=== PATIENT | female | born 1980 | race Caucasian/White ===

== ENCOUNTER 2017-01-13 20:59 | Emergency (ER) | payer MEDICARE ==
[2017-04-18 11:46] VITALS: BMI 39.9
== END 2017-01-13 22:06 | disposition home or self-care (01) ==
LOC: D.ER 20:59
DX: Z86.59 Personal history of other mental and behavioral disorders (principal); F41.9 Anxiety disorder, unspecified; I10 Essential (primary) hypertension; G10 Huntington's disease

== ENCOUNTER → 2017-04-17 18:22 | Emergency (ER) | payer MEDICARE, MEDICAID ==
[~2017-04-17 18:22] MED LIST: BACLOFEN10 MG PO; BENZTROPINE MESY2 MG PO; CYMBALTA60 MG PO; HALDOL5 MG PO; INVEGA6 MG/BLIST PO; KLONOPIN0.5 MG PO; PROTONIX40 MG PO; TOPAMAX50 MG PO; TRAZODONE HCL150 MG PO; ULTRAM50 MG PO
[2017-04-17 20:13] LABS: APPEARANCE CLEAR (CLEAR); BILIRUBIN NEGATIVE (NEGATIVE); COLOR YELLOW (YELLOW); GLUCOSE NEGATIVE (NEGATIVE); KETONE NEGATIVE (NEGATIVE); NITRITE NEGATIVE (NEGATIVE); PROTEIN NEGATIVE (NEGATIVE); UROBILINOGEN NORMAL (NORMAL)
[2017-04-17 20:19] LABS: UDS - AMPHET NEGATIVE QUAL (NEGATIVE); UDS - BARB NEGATIVE QUAL (NEGATIVE); UDS - BENZO NEGATIVE QUAL (NEGATIVE); UDS - COCAINE NEGATIVE QUAL (NEGATIVE); UDS - OPIATE NEGATIVE QUAL (NEGATIVE); UDS - PCP NEGATIVE QUAL (NEGATIVE); UDS - THC NEGATIVE QUAL (NEGATIVE)
[2017-04-17 20:20] LABS: BASOPHILS 0.4 % (0-2); EOSINOPHILS 3.1 % (0-7); HEMATOCRIT 38.9 % (36.0-48.0); HEMOGLOBIN 12.7 g/dL (12-16); IMMATURE GRANULOCYTES 0.3 % (0-5); LYMPHOCYTES 40.6 % (15-50); MCH 29.2 pg (26.0-34.0); MCHC 32.6 g/dL (31.0-37.0); MCV 89.4 fL (80.0-100.0); MEAN PLATELET VOLUME 10.3 fL (7.4-10.4); MONOCYTES 9.8 % (2-11); NEUTROPHILS 45.8 % (40-80); PLATELET COUNT 288 10x3/uL (130-400); RBC 4.35 10x6/uL (4.00-5.40); RDW 14.3 % (11.5-14.5); WBC 7.1 10x3/uL (4.8-10.8)
[2017-04-17 20:43] LABS: ALBUMIN 3.7 g/dL (3.4-5.0); ALKALINE PHOSPHATASE 55 U/L (46-116); ALT (SGPT) 16 U/L (10-68); CALC OSMOLALITY 283 mosm/kg (275-300); CALCIUM 8.7 mg/dL (8.5-10.1); CARBON DIOXIDE 24.2 mmol/L (21.0-32.0); CHLORIDE - SERUM 108 mmol/L (98-107); CREATININE - SERUM 1.1 mg/dL (0.6-1.3); GLUCOSE 100 mg/dL (74-106); POTASSIUM - SERUM 3.4 mmol/L (3.5-5.1); PROTEIN - SERUM 7.2 g/dL (6.4-8.2); SODIUM 142 mmol/L (136-145); UREA NITROGEN 14 mg/dL (7-18); eGFR NON AFRICAN AMERICAN 59 mL/min (90-120)
[2017-04-17 20:48] LABS: CKMB 1.3 U/L (0.0-3.6); CREATINE KINASE 112 UL (21-215)
[2017-04-17 20:51] LABS: TROPONIN-I < 0.017 ng/mL (0.000-0.060)
[2017-04-18 11:46] VITALS: BMI 39.9
== END | disposition left against medical advice (07) ==
LOC: D.ER 18:22
PROVIDERS: Family Medicine
DX: R41.82 Altered mental status, unspecified (principal); I10 Essential (primary) hypertension; G10 Huntington's disease; Z86.59 Personal history of other mental and behavioral disorders

== ENCOUNTER 2017-04-17 18:35 | Observation (INO) | payer MEDICARE, MEDICAID ==
[~2017-04-17] VITALS: Ht 175.3 cm; Wt 122.7 kg
[2017-04-18] VITALS: BP 127/83
[2017-04-18 04:00] VITALS: BP 147/89
[2017-04-18 04:14] LABS: BASOPHILS 0.9 % (0-2); EOSINOPHILS 3.6 % (0-7); HEMATOCRIT 37.3 % (36.0-48.0); HEMOGLOBIN 11.9 g/dL (12-16); IMMATURE GRANULOCYTES 0.2 % (0-5); LYMPHOCYTES 46.3 % (15-50); MCH 28.7 pg (26.0-34.0); MCHC 31.9 g/dL (31.0-37.0); MCV 90.1 fL (80.0-100.0); MEAN PLATELET VOLUME 10.3 fL (7.4-10.4); MONOCYTES 11.3 % (2-11); NEUTROPHILS 37.7 % (40-80); PLATELET COUNT 275 10x3/uL (130-400); RBC 4.14 10x6/uL (4.00-5.40); RDW 14.3 % (11.5-14.5); WBC 6.5 10x3/uL (4.8-10.8)
[2017-04-18 04:26] LABS: CALC OSMOLALITY 286 mosm/kg (275-300); CALCIUM 8.5 mg/dL (8.5-10.1); CARBON DIOXIDE 25.1 mmol/L (21.0-32.0); CHLORIDE - SERUM 110 mmol/L (98-107); GLUCOSE 101 mg/dL (74-106); SODIUM 144 mmol/L (136-145); UREA NITROGEN 12 mg/dL (7-18)
[2017-04-18 04:33] LABS: CREATININE - SERUM 0.8 mg/dL (0.6-1.3); eGFR NON AFRICAN AMERICAN 85 mL/min (90-120)
[2017-04-18 04:54] VITALS: BP 147/89; BMI 39.9
[2017-04-18] MEDS ORDERED: INVEGA6 MG/BLIST PO (05:15)
[2017-04-18] MEDS ORDERED: TRAZODONE HCL150 MG PO (05:16)
[2017-04-18] MEDS ORDERED: BACLOFEN10 MG PO (05:16)
[2017-04-18] MEDS ORDERED: PROTONIX40 MG PO (05:17)
[2017-04-18] MEDS ORDERED: BENZTROPINE MESY2 MG PO (05:17)
[2017-04-18] MEDS ORDERED: HALDOL5 MG PO (05:17)
[2017-04-18] MEDS ORDERED: ULTRAM50 MG PO (05:18)
[2017-04-18] MEDS ORDERED: KLONOPIN0.5 MG PO (05:18)
[2017-04-18] MEDS ORDERED: TOPAMAX50 MG PO ×2 (05:19)
[2017-04-18] MEDS ORDERED: CYMBALTA60 MG PO ×2 (05:20→11:49)
[2017-04-18 08:06] VITALS: BP 122/79
[2017-04-18 11:46] VITALS: Ht 175.3 cm; Wt 122.7 kg
[2017-04-18 12:02] VITALS: BP 125/72
== END 2017-04-18 12:33 | disposition home or self-care (01) ==
LOC: D.ER 18:35 → D.MS 22:00 → OBSVTIME 04-18 04:00 → D.MS 04-18 12:33
PROVIDERS: Family Medicine
DX: R41.82 Altered mental status, unspecified (principal); F20.9 Schizophrenia, unspecified; F31.9 Bipolar disorder, unspecified; A41.9 Sepsis, unspecified organism; I10 Essential (primary) hypertension; J44.9 Chronic obstructive pulmonary disease, unspecified; J45.909 Unspecified asthma, uncomplicated; F17.200 Nicotine dependence, unspecified, uncomplicated

== ENCOUNTER 2017-07-12 20:32 | Emergency (ER) | payer MEDICARE, MEDICAID ==
[2017-04-18 11:46] VITALS: BMI 39.9
[2017-07-12 21:59] LABS: BASOPHILS 0.3 % (0-2); EOSINOPHILS 0.8 % (0-7); HEMATOCRIT 36.9 % (36.0-48.0); HEMOGLOBIN 12.5 g/dL (12-16); IMMATURE GRANULOCYTES 0.1 % (0-5); LYMPHOCYTES 33.5 % (15-50); MCH 29.3 pg (26.0-34.0); MCHC 33.9 g/dL (31.0-37.0); MCV 86.4 fL (80.0-100.0); MEAN PLATELET VOLUME 10.8 fL (7.4-10.4); MONOCYTES 7.9 % (2-11); NEUTROPHILS 57.4 % (40-80); PLATELET COUNT 246 10x3/uL (130-400); RBC 4.27 10x6/uL (4.00-5.40); RDW 16.3 % (11.5-14.5); WBC 9.7 10x3/uL (4.8-10.8)
[2017-07-12 22:12] LABS: ALBUMIN 3.6 g/dL (3.4-5.0); ANION GAP 16.6 mmol/L (8-16); BILIRUBIN - TOTAL 0.37 mg/dL (0.2-1.3); CALCIUM 8.6 mg/dL (8.5-10.1); CARBON DIOXIDE 19.4 mmol/L (21.0-32.0); CREATININE - SERUM 1.1 mg/dL (0.6-1.3); PROTEIN - SERUM 7.1 g/dL (6.4-8.2)
[2017-07-12 22:50] LABS: HCG URINE NEGATIVE (NEGATIVE)
[2017-07-12 23:00] LABS: UDS - AMPHET NEGATIVE QUAL (NEGATIVE); UDS - BARB NEGATIVE QUAL (NEGATIVE); UDS - BENZO NEGATIVE QUAL (NEGATIVE); UDS - COCAINE NEGATIVE QUAL (NEGATIVE); UDS - OPIATE NEGATIVE QUAL (NEGATIVE); UDS - PCP NEGATIVE QUAL (NEGATIVE); UDS - THC NEGATIVE QUAL (NEGATIVE)
[2017-07-12 23:01] LABS: APPEARANCE CLOUDY (CLEAR); BILIRUBIN NEGATIVE (NEGATIVE); COLOR YELLOW (YELLOW); GLUCOSE NEGATIVE (NEGATIVE); KETONE SMALL mg/dL (NEGATIVE); NITRITE NEGATIVE (NEGATIVE); PROTEIN NEGATIVE (NEGATIVE); SPECIFIC GRAVITY 1.015 (1.005-1.020); UROBILINOGEN NORMAL (NORMAL)
[2017-07-12 23:02] LABS: BACTERIA FEW /hpf (NONE SEEN); RED CELLS - URINE NONE SEEN /hpf (0-5)
== END 2017-07-12 23:18 | disposition home or self-care (01) ==
LOC: D.ER 20:32
PROVIDERS: Family Medicine
DX: N39.0 Urinary tract infection, site not specified (principal); I10 Essential (primary) hypertension; G10 Huntington's disease

== ENCOUNTER 2018-09-19 10:39 | Emergency (ER) | payer MEDICARE, MEDICAID ==
[~2018-09-19] VITALS: Ht 175.3 cm; Wt 136.4 kg
[2018-09-19 10:42] VITALS: Ht 175.3 cm; Wt 136.4 kg
[2018-09-19] MEDS ORDERED: HALDOL5 MG PO (10:46)
[2018-09-19] MEDS ORDERED: PROZAC40 MG PO ×2 (10:46→11:21)
[2018-09-19] MEDS ORDERED: ALBUTEROL SULF8.5 GM INH (10:47)
[2018-09-19] MEDS ORDERED: RELAFEN500 MG PO ×2 (10:47→11:21)
[2018-09-19] MEDS ORDERED: ATIVAN1 MG PO ×2 (10:47→11:23)
[2018-09-19] MEDS ORDERED: TRILEPTAL600 MG PO (10:48)
[2018-09-19] MEDS ORDERED: ZYPREXA15 MG PO ×2 (10:48→11:21)
[2018-09-19] MEDS ORDERED: INVEGA 3 MG ER T3 MG PO (10:48)
[2018-09-19] MEDS ORDERED: TRAZODONE HCL150 MG PO ×2 (10:49→11:21)
[2018-09-19] MEDS ORDERED: ZOLOFT100 MG PO ×2 (10:49→11:21)
[2018-09-19] MEDS ORDERED: ULTRAM50 MG PO ×2 (10:49→11:24)
[2018-09-19] MEDS ORDERED: PROTONIX40 MG PO (10:49)
--- NOTE | 2018-09-19 11:25 | NUR ---
On the suicide assessment the patient scores low on suicide risk. She does not require any suicide observation.
--- NOTE | 2018-09-19 11:25 | NUR ---
Did provide the patient with suicide resources handout.
[2018-09-19 11:50] VITALS: BP 158/60
== END 2018-09-19 11:51 | disposition home or self-care (01) ==
LOC: D.ER 10:39
DX: F32.9 Major depressive disorder, single episode, unspecified (principal); F41.9 Anxiety disorder, unspecified; F20.9 Schizophrenia, unspecified

== ENCOUNTER 2018-10-15 15:05 | Emergency (ER) | payer MEDICARE, MEDICAID ==
[~2018-10-15] VITALS: Ht 175.3 cm; Wt 138.6 kg
[~2018-10-15 15:05] MED LIST changes: +ALBUTEROL SULF8.5 GM INH; +ATIVAN1 MG PO; +INVEGA 3 MG ER T3 MG PO; +PROZAC40 MG PO; +RELAFEN500 MG PO; +TRILEPTAL600 MG PO; +ZOLOFT100 MG PO; +ZYPREXA15 MG PO
[2018-10-15 15:08] VITALS: Ht 175.3 cm; Wt 138.6 kg
[2018-10-15] MEDS ORDERED: CYCLOBENZAPRINE10 MG PO (16:47)
[2018-10-15] MEDS ORDERED: EC-NAPROSYN500 MG PO (16:47)
[2018-10-15 17:46] VITALS: BP 138/89
== END 2018-10-15 17:47 | disposition home or self-care (01) ==
LOC: D.ER 15:05
DX: S39.012A Strain of muscle, fascia and tendon of lower back, initial encounter (principal); X58.XXXA Exposure to other specified factors, initial encounter; Y93.89 Activity, other specified; Y92.89 Other specified places as the place of occurrence of the external cause; M54.31 Sciatica, right side